=== PATIENT | male | born 1955 | race Caucasian/White ===

== ENCOUNTER → 2016-09-28 | Outpatient (CLI) | payer MEDICARE, OTHER ==
[~2016-09-28] VITALS: Ht 167.6 cm; Wt 117.0 kg
[~2016-09-28] MED LIST: AMLO5TAB2 PO; ASPI-621 PO; ATOR40TA78 PO; CALC ACETATE; CALC667C3 PO; CARV-39 PO; CARVEDILOL 25 MG TABLET PO ONE; CLON0.1T PO; Clonidine Hcl TD; ERGO500040 PO; FERR325T20 PO; FURO40TA6 PO; GABA600T2 PO; HYDR1TAB12 PO; INSU100I15 SQ; INSU100V8 SQ; LANT500T PO; LEVO50TA5 PO; METO5TAB5 PO; SIMV20TA3 PO
[2016-09-28 07:20] VITALS: BP 199/66
[2016-09-28 08:57] LABS: HEMOGLOBIN 11.1 g/dL (13.7-18.0)
[2016-09-28 09:11] LABS: BLOOD UREA NITROGEN 37 mg/dL (7-18)
[2016-09-28 09:15] LABS: ASPARTATE AMINO TRANSFERASE 10 U/L (15-37)
== END | disposition home or self-care (01) ==
LOC: OUT 06:46 → EDSTATUS 09:00 → OUT 10:17
PROVIDERS: ATTEND Specialist
DX: Z01.811 Encounter for preprocedural respiratory examination (principal); I50.9 Heart failure, unspecified; J81.1 Chronic pulmonary edema; I51.7 Cardiomegaly; J90 Pleural effusion, not elsewhere classified; D64.9 Anemia, unspecified; R06.02 Shortness of breath; R19.5 Other fecal abnormalities
CPT/HCPCS: 36415; 71010; 80053; 85025; 93005